=== PATIENT | female | born 1975 | race Hispanic/Latino ===

== ENCOUNTER 2018-03-12 20:57 | Emergency (ER) | payer OTHER ==
[2018-03-12 21:29] LABS: APPEARANCE,URINE CLEAR (CLEAR); BILIRUBIN,URINE NEGATIVE (NEGATIVE); COLOR,URINE YELLOW (YELLOW); GLUCOSE, URINE (UA) NEGATIVE (NEGATIVE); KETONES,URINE 5 mg/dL (NEGATIVE); LEUKOCYTE ESTERASE ,URINE TRACE (NEGATIVE); NITRATE,URINE POSITIVE (NEGATIVE); OCCULT BLOOD,URINE NEGATIVE (NEGATIVE); PROTEIN,URINE TRACE (NEGATIVE)
[2018-03-12 21:39] LABS: BACTERIA,URINE Few /HPF (None Seen); RBC,URINE 0-1 /HPF (0-1)
[2018-03-12 21:40] LABS: SQUAMOUS EPITHELIAL CELL,UR Few /HPF (0-2)
[2018-03-12] MEDS ORDERED: IPRATROPIUM/ALBUTEROL SULFATE 3 ML SOLUTION IH ONE (22:07)
[2018-03-12 22:11] LABS: BASOPHILS % (AUTO) 0.5 % (0.0-5.0); EOSINOPHILS % (AUTO) 3.5 % (0.0-8.0); HEMATOCRIT 44.6 % (36-48); LYMPHOCYTES % (AUTO) 17.5 % (21.0-51.0); MEAN CORPUSCULAR HEMOGLOBIN 31.4 pg (27.0-33.0); MEAN CORPUSCULAR HGB CONC 34.6 g/dL (32.0-36.0); MEAN CORPUSCULAR VOLUME 90.8 fL (79-99); MONOCYTES % (AUTO) 10.1 % (3.0-13.0); NEUTROPHILS % (AUTO) 68.4 % (40.0-77.0); PLATELET COUNT (AUTO) 251 K/uL (130-400); RED BLOOD CELL COUNT(AUTO) 4.91 MIL/uL (4.00-5.50); RED CELL DISTRIBUTION WIDTH 13.3 % (11.0-15.5); WHITE BLOOD COUNT (AUTO) 8.7 K/uL (4.8-10.8)
[2018-03-12 22:24] LABS: INR 0.92 (0.85-1.15); PARTIAL THROMBOPLASTIN TIME 26.8 SEC (26.3-35.5); PROTHROMBIN TIME 9.7 SEC (9.6-11.6)
[2018-03-12 22:28] LABS: CARBON DIOXIDE 28 mmol/L (21-32); CHLORIDE 106 mmol/L (101-111); CREATININE 0.8 mg/dL (0.5-1.5); GLOMERULAR FILTR. RATE CALC 83 mL/min (>60); GLUCOSE,RANDOM 112 mg/dL (70-105); POTASSIUM 3.7 mmol/L (3.5-5.1); SODIUM SERUM 142 mmol/L (136-145); UREA NITROGEN, BLOOD 12 mg/dL (7-18)
[2018-03-12 22:44] LABS: ALANINE AMINOTRANSFERASE 33 U/L (12-78); ALBUMIN 3.5 g/dL (3.5-5.0); ASPARTATE AMINOTRANSFERASE 18 U/L (10-37); BILIRUBIN,TOTAL 0.4 mg/dL (0.2-1.0); CREATINE KINASE MB < 0.5 ng/mL (0.5-3.6); CREATINE KINASE, TOTAL 40 U/L (21-232); MYOGLOBIN 18 ng/mL (10-92); TOTAL PROTEIN, SERUM 7.5 g/dL (6.0-8.3); TROPONIN I < 0.04 ng/mL (0.00-0.06)
[2018-03-12] MEDS ORDERED: CEFTRIAXONE SODIUM 1 GM ONE (23:01)
[2018-03-13] MEDS ORDERED: BENZONATATE 100 MG CAPSULE PO ONE (00:05)
[2018-03-13] MEDS ORDERED: DEXAMETHASONE SOD PHOSPHATE 10MG/ML 1ML VIAL ONE (00:05)
== END 2018-03-13 00:37 | disposition home or self-care (01) ==
LOC: EDH 20:57
DX: J20.9 Acute bronchitis, unspecified (principal); N39.0 Urinary tract infection, site not specified; M79.1 Myalgia; Z88.0 Allergy status to penicillin; Z90.710 Acquired absence of both cervix and uterus; Z98.890 Other specified postprocedural states
CPT/HCPCS: 36415 ×2; 71045; 80053; 81001; 82550; 82553; 83605 ×2; 83874; 84484; 85025; 85378; 85610; 85730; 87040 ×2; 87088; 87186; 93005; 94640; 96374; 96375; 99285; J0696; J1100

== ENCOUNTER 2018-08-31 21:06 | Emergency (ER) | payer OTHER ==
[2018-08-31] MEDS ORDERED: FUROSEMIDE 10 MG/ML 4ML VIAL ONE (21:14)
[2018-08-31 22:15] LABS: BASOPHILS % (AUTO) 0.3 % (0.0-5.0); EOSINOPHILS % (AUTO) 2.7 % (0.0-8.0); HEMATOCRIT 45.4 % (36-48); LYMPHOCYTES % (AUTO) 23.8 % (21.0-51.0); MEAN CORPUSCULAR HEMOGLOBIN 30.5 pg (27.0-33.0); MEAN CORPUSCULAR HGB CONC 33.5 g/dL (32.0-36.0); MEAN CORPUSCULAR VOLUME 91.1 fL (79-99); MONOCYTES % (AUTO) 7.8 % (3.0-13.0); NEUTROPHILS % (AUTO) 65.4 % (40.0-77.0); NUCLEATED RED BLOOD CELLS 0.1 % (0.0-0.19); PLATELET COUNT (AUTO) 246 K/uL (130-400); RED BLOOD CELL COUNT(AUTO) 4.98 MIL/uL (4.00-5.50); RED CELL DISTRIBUTION WIDTH 13.3 % (11.0-15.5); WHITE BLOOD COUNT (AUTO) 10.8 K/uL (4.8-10.8)
[2018-08-31 22:17] LABS: APPEARANCE,URINE Cloudy (CLEAR); BILIRUBIN,URINE Negative (NEGATIVE); COLOR,URINE Dark Yellow (YELLOW); CREATININE 0.8 mg/dL (0.5-1.5); GLUCOSE, URINE (UA) Negative (NEGATIVE); INR 0.95 (0.85-1.15); KETONES,URINE Trace mg/dL (NEGATIVE); LEUKOCYTE ESTERASE ,URINE Trace (NEGATIVE); NITRATE,URINE Negative (NEGATIVE); OCCULT BLOOD,URINE Negative (NEGATIVE); PARTIAL THROMBOPLASTIN TIME 29.5 SEC (26.3-35.5); POTASSIUM 4.1 mmol/L (3.5-5.1); PROTEIN,URINE Trace (NEGATIVE)
[2018-08-31] MEDS ORDERED: ASPIRIN 325 MG TABLET ONE (22:28)
[2018-08-31 22:44] LABS: BACTERIA,URINE Few /HPF (None Seen); MUCUS,URINE Moderate LPF (None Seen); RBC,URINE 0-1 /HPF (0-1); SQUAMOUS EPITHELIAL CELL,UR Moderate /HPF (0-2)
[2018-08-31 22:46] LABS: ALBUMIN 3.5 g/dL (3.5-5.0); BILIRUBIN,TOTAL 0.5 mg/dL (0.2-1.0); TOTAL PROTEIN, SERUM 7.5 g/dL (6.0-8.3)
[2018-09-01] MEDS ORDERED: ACETAMINOPHEN-CODEINE 300/30MG TAB ONE (01:07)
== END 2018-09-01 01:30 | disposition home or self-care (01) ==
LOC: EDH 21:06
DX: R07.89 Other chest pain (principal); R00.2 Palpitations; R51 Headache; Z88.0 Allergy status to penicillin; Z79.899 Other long term (current) drug therapy
CPT/HCPCS: 36415; 71045; 80053; 81001; 82550; 83874; 84439; 84443; 84484; 85025; 85610; 85730; 93005; 94761; J1940

== ENCOUNTER 2019-04-22 12:17 | Emergency (ER) | payer OTHER ==
[2019-04-22 13:12] LABS: BASOPHILS % (AUTO) 0.5 % (0.0-5.0); EOSINOPHILS % (AUTO) 2.1 % (0.0-8.0); HEMATOCRIT 44.5 % (36-48); LYMPHOCYTES % (AUTO) 24.2 % (21.0-51.0); MEAN CORPUSCULAR HEMOGLOBIN 30.6 pg (27.0-33.0); MEAN CORPUSCULAR HGB CONC 33.8 g/dL (32.0-36.0); MEAN CORPUSCULAR VOLUME 90.5 fL (79-99); MONOCYTES % (AUTO) 7.7 % (3.0-13.0); NEUTROPHILS % (AUTO) 65.5 % (40.0-77.0); NUCLEATED RED BLOOD CELLS 0.1 % (0.0-0.19); PLATELET COUNT (AUTO) 262 K/uL (130-400); RED BLOOD CELL COUNT(AUTO) 4.91 MIL/uL (4.00-5.50); RED CELL DISTRIBUTION WIDTH 12.9 % (11.0-15.5); WHITE BLOOD COUNT (AUTO) 9.5 K/uL (4.8-10.8)
[2019-04-22 13:29] LABS: CREATININE 0.7 mg/dL (0.5-1.5); POTASSIUM 3.6 mmol/L (3.5-5.1)
[2019-04-22 13:52] LABS: APPEARANCE,URINE CLEAR (CLEAR); BILIRUBIN,URINE NEGATIVE (NEGATIVE); COLOR,URINE YELLOW (YELLOW); GLUCOSE, URINE (UA) NEGATIVE (NEGATIVE); KETONES,URINE NEGATIVE (NEGATIVE); LEUKOCYTE ESTERASE ,URINE NEGATIVE (NEGATIVE); NITRATE,URINE NEGATIVE (NEGATIVE); OCCULT BLOOD,URINE NEGATIVE (NEGATIVE); PROTEIN,URINE TRACE mg/dL (NEGATIVE)
[2019-04-22 13:52] LABS: ALBUMIN 4.1 g/dL (3.5-5.0); BILIRUBIN,TOTAL 0.5 mg/dL (0.2-1.0); MAGNESIUM 1.8 mg/dL (1.80-2.40); TOTAL PROTEIN, SERUM 7.5 g/dL (6.0-8.3)
[2019-04-22 14:01] LABS: BACTERIA,URINE None Seen /HPF (None Seen); MUCUS,URINE Many LPF (None Seen); RBC,URINE None Seen /HPF (0-1); SQUAMOUS EPITHELIAL CELL,UR Rare /HPF (0-2); WBC,URINE 0-1 /HPF (0-1)
[2019-04-22] MEDS ORDERED: SODIUM CHLORIDE 0.9% 1000ML 1,000 ML IV ONE (14:09)
== END 2019-04-22 16:16 | disposition home or self-care (01) ==
LOC: EDH 12:17
DX: M62.82 Rhabdomyolysis (principal); Z90.710 Acquired absence of both cervix and uterus; Z88.0 Allergy status to penicillin
CPT/HCPCS: 36415; 80053; 81001; 82550; 83735; 83874; 85025; 93971; 96360; 96361; 99285; J7030

== ENCOUNTER 2019-12-19 10:14 | Emergency (ER) | payer OTHER ==
[2019-12-19 10:56] LABS: BASOPHILS % (AUTO) 0.3 % (0.0-5.0); EOSINOPHILS % (AUTO) 2.3 % (0.0-8.0); LYMPHOCYTES % (AUTO) 24.2 % (21.0-51.0); MEAN CORPUSCULAR HGB CONC 32.9 g/dL (32.0-36.0); MEAN CORPUSCULAR VOLUME 94.3 fL (79-99); MONOCYTES % (AUTO) 7.1 % (3.0-13.0); NEUTROPHILS % (AUTO) 65.8 % (40.0-77.0); PLATELET COUNT (AUTO) 270 K/uL (130-400); RED BLOOD CELL COUNT(AUTO) 4.77 MIL/uL (4.00-5.50); RED CELL DISTRIBUTION WIDTH 12.7 % (11.0-15.5); WHITE BLOOD COUNT (AUTO) 8.6 K/uL (4.8-10.8)
[2019-12-19 11:06] LABS: CREATININE 0.9 mg/dL (0.5-1.5); POTASSIUM 4.8 mmol/L (3.5-5.1)
[2019-12-19 11:08] LABS: INR 0.91 (0.85-1.15); PROTHROMBIN TIME 9.9 SEC (9.6-11.6)
[2019-12-19 11:14] LABS: ALBUMIN 3.5 g/dL (3.5-5.0); BILIRUBIN,TOTAL 0.4 mg/dL (0.2-1.0); TOTAL PROTEIN, SERUM 7.6 g/dL (6.0-8.3)
[2019-12-19 14:29] LABS: APPEARANCE,URINE Clear (CLEAR); BILIRUBIN,URINE Negative (NEGATIVE); COLOR,URINE Yellow (YELLOW); GLUCOSE, URINE (UA) Negative (NEGATIVE); KETONES,URINE Negative (NEGATIVE); LEUKOCYTE ESTERASE ,URINE Negative (NEGATIVE); NITRATE,URINE Negative (NEGATIVE); OCCULT BLOOD,URINE Negative (NEGATIVE); PROTEIN,URINE Negative (NEGATIVE)
== END 2019-12-19 15:18 | disposition home or self-care (01) ==
LOC: EDH 10:14
DX: R07.89 Other chest pain (principal); R60.9 Edema, unspecified; Z88.0 Allergy status to penicillin; Z90.710 Acquired absence of both cervix and uterus; Z87.891 Personal history of nicotine dependence
CPT/HCPCS: 36415; 71045; 80053; 81003; 82550; 83880; 84484; 85025; 85378; 85610; 85730; 93005

== ENCOUNTER 2020-03-29 21:33 | Emergency (ER) | payer OTHER ==
[2020-03-29 23:41] LABS: BASOPHILS % (AUTO) 0.2 % (0.0-5.0); EOSINOPHILS % (AUTO) 1.9 % (0.0-8.0); HEMATOCRIT 49.2 % (36-48); LYMPHOCYTES % (AUTO) 22.7 % (21.0-51.0); MEAN CORPUSCULAR HEMOGLOBIN 31.4 pg (27.0-33.0); MEAN CORPUSCULAR HGB CONC 33.7 g/dL (32.0-36.0); MONOCYTES % (AUTO) 13.8 % (3.0-13.0); NEUTROPHILS % (AUTO) 61.2 % (40.0-77.0); PLATELET COUNT (AUTO) 158 K/uL (130-400); RED BLOOD CELL COUNT(AUTO) 5.29 MIL/uL (4.00-5.50); RED CELL DISTRIBUTION WIDTH 13.3 % (11.0-15.5); WHITE BLOOD COUNT (AUTO) 5.9 K/uL (4.8-10.8)
[2020-03-29 23:48] LABS: CREATININE 0.9 mg/dL (0.5-1.5); POTASSIUM 3.7 mmol/L (3.5-5.1)
[2020-03-29 23:53] LABS: ALBUMIN 3.8 g/dL (3.5-5.0); BILIRUBIN,TOTAL 0.5 mg/dL (0.2-1.0); TOTAL PROTEIN, SERUM 8.4 g/dL (6.0-8.3)
[2020-03-30 00:02] LABS: INR 0.96 (0.85-1.15); PARTIAL THROMBOPLASTIN TIME 32.6 SEC (26.3-35.5); PROTHROMBIN TIME 10.4 SEC (9.6-11.6)
[2020-03-30 00:07] LABS: B-TYPE NATRIURETIC PEPTIDE < 5 pg/mL (0-100)
== END 2020-03-30 02:58 | disposition home or self-care (01) ==
LOC: EDH 21:33
DX: U07.1 COVID-19 (principal); J06.9 Acute upper respiratory infection, unspecified; Z88.0 Allergy status to penicillin; Z90.410 Acquired total absence of pancreas
CPT/HCPCS: 36415; 71045; 80053; 82550; 83880; 84484; 85025; 85610; 85730; 87040; 87077; 87186; 87486; 87581; 87633; 87635; 87798; 93005

== ENCOUNTER 2020-04-02 20:24 | Inpatient (IN) | payer OTHER ==
[~2020-04-02] VITALS: Ht 157.5 cm; Wt 103.6 kg
[2020-04-02] MEDS ORDERED: SODIUM CHLORIDE 0.9% 1000ML 1,000 ML IV ONE (22:07)
[2020-04-02] MEDS ORDERED: MORPHINE SULFATE 4 MG/1ML SYG ONE (22:09)
[2020-04-02] MEDS ORDERED: AZITHROMYCIN 500MG+NS 250ML 250 ML IV ONE (22:09)
[2020-04-02] MEDS ORDERED: METHYLPREDNISOLONE SOD SUCC 40MG/ML 1ML ONE (22:09)
[2020-04-02] MEDS ORDERED: ONDANSETRON HCL 4 MG/2 ML VIAL ONE (22:09)
[2020-04-02] MEDS ORDERED: ACETAMINOPHEN EXTRA STRENGTH 500 MG TABLET ONE (22:22)
[2020-04-02] MEDS ORDERED: IOHEXOL 350 MG/ML 100ML INFUS..BTL IV ONE (23:37)
[2020-04-03] MEDS ORDERED: SODIUM CHLORIDE 0.9% 1000ML 1,000 ML IV SCH (00:40)
[2020-04-03] MEDS ORDERED: LACTULOSE 20 GM/30 ML UDCUP PO PRN (00:45)
[2020-04-03] MEDS ORDERED: ACETAMINOPHEN 325 MG TAB PO PRN ×2 (00:45)
[2020-04-03] MEDS ORDERED: ONDANSETRON HCL 4 MG/2 ML VIAL IV PRN (00:45)
[2020-04-03] MEDS ORDERED: ALBUTEROL INHALER 90MCG/INH IH ONE (01:19)
[2020-04-03] MEDS: ALBUTEROL INHALER 90MCG/INH IH SCH (06:00)
[2020-04-03] MEDS ORDERED: METHYLPREDNISOLONE SOD SUCC 40MG/ML 1ML IVP SCH ×2 (06:00→21:00)
[2020-04-03] MEDS ORDERED: ENOXAPARIN SODIUM 40 MG/0.4 ML SYRINGE SQ ONE (08:49)
[2020-04-03] MEDS ORDERED: FAMOTIDINE/PF 20 MG/2 ML VIAL IV ONE ×2 (08:50→21:51)
[2020-04-03] MEDS ORDERED: ENOXAPARIN SODIUM 40 MG/0.4 ML SYRINGE SQ SCH (09:00)
[2020-04-03] MEDS ORDERED: ACETAMINOPHEN 325 MG TAB ONE (12:30)
[2020-04-03] MEDS ORDERED: DOXYCYCLINE HYCLATE 100 MG TABLET PO ONE (14:10)
[2020-04-03] MEDS ORDERED: METHYLPREDNISOLONE SOD SUCC 40MG/ML 1ML ONE ×2 (14:10→21:50)
[2020-04-03] MEDS ORDERED: CEFTRIAXONE SODIUM 1 GM ONE (14:11)
[2020-04-03] MEDS ORDERED: SODIUM CHLORIDE 0.9% 100 ML IV ONE (14:11)
--- NOTE | 2020-04-03 16:06 | NUR ---
SW unable to meet with pt who is in ER covid 19 unit. Sw tried to reach daughter Rhonda Tuttle, but # is same as one for pt, and no one answered. CM to follow and complete IA when able
--- NOTE | 2020-04-03 16:14 | NUR ---
DCP: HOME Sw recd call from pt who states she lives alone, daughter Rhonda Tuttle [phone] is ER contact and away at college. Prior to admission, pt works drives, is independent of all ADLS, no DME or HH services. Pt has no PCP and uses [facility] for rx medications. Plan is home at ok Addendum: 04/03/20 at 1616 by IRENA LOZA Amended: Links added.
[2020-04-03] MEDS ORDERED: SODIUM CHLORIDE 0.9% 1000ML 1,000 ML IV ONE (17:19)
[2020-04-03] MEDS ORDERED: CEFTRIAXONE SODIUM 1 GM IVP SCH (20:00)
[2020-04-03] MEDS ORDERED: MORPHINE SULFATE 2 MG/ML 1ML SYG ONE (21:34)
[2020-04-03] MEDS ORDERED: ONDANSETRON HCL 4 MG/2 ML VIAL ONE (21:34)
[2020-04-03] MEDS ORDERED: ENOXAPARIN SODIUM 60 MG/0.6 ML SQ ONE (21:50)
[2020-04-04] MEDS ORDERED: CEFTRIAXONE SODIUM 1 GM ONE (01:21)
[2020-04-04] MEDS ORDERED: DOXYCYCLINE HYCLATE 100 MG TABLET PO ONE ×2 (01:21→19:40)
[2020-04-04] MEDS ORDERED: SODIUM CHLORIDE 0.9% 1000ML 1,000 ML IV ONE (05:08)
[2020-04-04] MEDS ORDERED: METHYLPREDNISOLONE SOD SUCC 40MG/ML 1ML ONE (05:47)
[2020-04-04] MEDS ORDERED: ACETAMINOPHEN 325 MG TAB ONE (23:37)
[2020-04-04] MEDS ORDERED: MORPHINE SULFATE 2 MG/ML 1ML SYG ONE (23:37)
[2020-04-04] MEDS ORDERED: ONDANSETRON HCL 4 MG/2 ML VIAL ONE (23:37)
[2020-04-05] MEDS ORDERED: DOXYCYCLINE HYCLATE 100 MG TABLET PO ONE ×2 (01:24→14:45)
[2020-04-05] MEDS ORDERED: CEFTRIAXONE SODIUM 1 GM ONE ×2 (01:24→14:50)
[2020-04-05] MEDS: LACTOBACILLUS RHAMNOSUS GG 1 EACH CAP.SPRINK PO SCH (06:30)
[2020-04-05] MEDS: ZINC SULFATE 220 CAPSULE PO SCH (09:00)
[2020-04-05] MEDS: ASCORBIC ACID 500 MG TAB PO SCH (09:00)
[2020-04-05] MEDS ORDERED: ACETAMINOPHEN 325 MG TAB ONE ×3 (09:03→20:34)
[2020-04-05] MEDS ORDERED: ENOXAPARIN SODIUM 60 MG/0.6 ML SQ ONE ×2 (11:27→20:33)
[2020-04-05] MEDS ORDERED: SODIUM CHLORIDE 0.9% 100 ML IV ONE (14:50)
[2020-04-05] MEDS ORDERED: METHYLPREDNISOLONE SOD SUCC 125MG/2ML VIAL ONE (18:46)
[2020-04-05] MEDS ORDERED: FAMOTIDINE/PF 20 MG/2 ML VIAL IV ONE (20:34)
[2020-04-05] MEDS: FAMOTIDINE 20MG TAB 20 MG TAB PO SCH (21:00)
[2020-04-05] MEDS: ENOXAPARIN SODIUM 60 MG/0.6 ML SQ SCH (21:00)
[2020-04-06] MEDS ORDERED: METHYLPREDNISOLONE SOD SUCC 40MG/ML 1ML ONE (01:47)
[2020-04-06] MEDS ORDERED: CEFTRIAXONE SODIUM 1 GM ONE (01:47)
[2020-04-06] MEDS ORDERED: DOXYCYCLINE HYCLATE 100 MG TABLET PO ONE (01:47)
[2020-04-06] MEDS: ALBUTEROL INHALER 90MCG/INH IH SCH ×2 (02:00→06:08)
[2020-04-06] MEDS: DOXYCYCLINE 100MG+NS 250ML 250 ML IV SCH ×3 (02:00→23:20)
[2020-04-06] MEDS: METHYLPREDNISOLONE SOD SUCC 125MG/2ML VIAL IVP SCH ×4 (02:15→23:25)
--- NOTE | 2020-04-06 03:35 | NUR ---
Admitted to floor via wheelchair from ER. AOX3. Alert and responsive. On continuous O2 at 3LPM via NC with O2Sat at 93%. SOB during exertion / activity noted. Positioned in bed with HOBE for easy breathing. VS checked and recorded. Assessment done. ( See CPOE flow chart for full assessment). Attached to TELE at bedside with SR of 70's. Plan of care continued as ordered. Monitored and observed for any unusual changes in condition. Needs attended and cared for. No apparent distress / discomfort noted at this time. Report given by LULI Reyes.
[2020-04-06 03:47] VITALS: BP 127/76; PULSE 73; RESP 22; TEMP 98.5
[2020-04-06] MEDS: LACTOBACILLUS RHAMNOSUS GG 1 EACH CAP.SPRINK PO SCH (06:30)
[2020-04-06 08:06] VITALS: BP 136/77; PULSE 67; RESP 18; TEMP 98.6
[2020-04-06] MEDS ORDERED: REMDESIVIR (INVESTIGATIONAL) 100 MG in SODIUM CHLORIDE 0.9% 250 ML IV SCH (08:30)
[2020-04-06] MEDS: FAMOTIDINE 20MG TAB 20 MG TAB PO SCH ×2 (10:40→23:20)
[2020-04-06] MEDS: ZINC SULFATE 220 CAPSULE PO SCH (10:40)
[2020-04-06] MEDS: ASCORBIC ACID 500 MG TAB PO SCH (10:40)
[2020-04-06] MEDS: ENOXAPARIN SODIUM 60 MG/0.6 ML SQ SCH ×2 (10:41→23:22)
[2020-04-06 12:37] VITALS: BP 127/74; PULSE 73; RESP 20; TEMP 98.2
[2020-04-06 15:44] VITALS: BP 138/90; PULSE 82; RESP 18; TEMP 98.7
[2020-04-06] MEDS: CEFTRIAXONE SODIUM 1 GM IVP SCH ×2 (16:53→23:18)
[2020-04-06 20:08] VITALS: BP 121/68; PULSE 73; RESP 18; TEMP 98.5
[2020-04-06 23:56] VITALS: BP 138/74; PULSE 68; RESP 18; TEMP 98.8
[2020-04-07] VITALS (7 sets, daily range): BP systolic 113–159; BP diastolic 53–95; PULSE 63–114; RESP 18–19; TEMP 97.2–98.4
[2020-04-07] MEDS: MORPHINE SULFATE 2 MG/ML 1ML SYG IV PRN ×2 (00:04→22:35)
[2020-04-07] MEDS: FAMOTIDINE 20MG TAB 20 MG TAB PO SCH (09:00)
[2020-04-07] MEDS: ZINC SULFATE 220 CAPSULE PO SCH (09:23)
[2020-04-07] MEDS: ASCORBIC ACID 500 MG TAB PO SCH (09:23)
[2020-04-07] MEDS: LACTOBACILLUS RHAMNOSUS GG 1 EACH CAP.SPRINK PO SCH (09:23)
[2020-04-07] MEDS: ENOXAPARIN SODIUM 60 MG/0.6 ML SQ SCH ×2 (09:24→21:08)
[2020-04-07] MEDS: METHYLPREDNISOLONE SOD SUCC 125MG/2ML VIAL IVP SCH ×2 (09:24→18:16)
[2020-04-07] MEDS: DOXYCYCLINE 100MG+NS 250ML 250 ML IV SCH ×2 (09:24→21:07)
[2020-04-07] MEDS: CEFTRIAXONE SODIUM 1 GM IVP SCH (13:42)
[2020-04-07] MEDS ORDERED: POTASSIUM CHLORIDE 20 MEQ ERTAB PO SCH (20:30)
[2020-04-07] MEDS: PANTOPRAZOLE SODIUM 40 MG TABLET.DR PO SCH (21:07)
[2020-04-08] MEDS: CEFTRIAXONE SODIUM 1 GM IVP SCH ×2 (02:47→13:16)
[2020-04-08] MEDS: METHYLPREDNISOLONE SOD SUCC 125MG/2ML VIAL IVP SCH ×2 (02:47→09:18)
[2020-04-08 04:31] VITALS: BP 131/75; PULSE 54; RESP 18; TEMP 97.3
[2020-04-08 07:00] VITALS: BP 131/78; PULSE 52; RESP 20; TEMP 97.2
[2020-04-08] MEDS: ASCORBIC ACID 500 MG TAB PO SCH (09:17)
[2020-04-08] MEDS: ENOXAPARIN SODIUM 60 MG/0.6 ML SQ SCH (09:17)
[2020-04-08] MEDS: ZINC SULFATE 220 CAPSULE PO SCH (09:18)
[2020-04-08] MEDS: DOXYCYCLINE 100MG+NS 250ML 250 ML IV SCH ×2 (09:18→20:50)
[2020-04-08] MEDS: PANTOPRAZOLE SODIUM 40 MG TABLET.DR PO SCH (09:18)
[2020-04-08] MEDS: LACTOBACILLUS RHAMNOSUS GG 1 EACH CAP.SPRINK PO SCH (09:18)
[2020-04-08] MEDS: METHYLPREDNISOLONE SOD SUCC 40MG/ML 1ML IVP SCH ×2 (09:45→17:24)
[2020-04-08 11:00] VITALS: BP 166/84; PULSE 65; RESP 20; TEMP 97.4
[2020-04-08 16:00] VITALS: BP 132/76; PULSE 57; RESP 20; TEMP 97.8
[2020-04-08] MEDS: METOPROLOL TARTRATE 25 MG TAB PO SCH ×2 (17:24→20:50)
[2020-04-08 19:29] VITALS: BP 110/58; PULSE 60; RESP 20; TEMP 97.2
[2020-04-08] MEDS: ALBUTEROL INHALER 90MCG/INH IH SCH (20:51)
--- NOTE | 2020-04-08 21:24 | NUR ---
IV Pt c/i her iv hurts,iv site with no redness,no swelling.Inserted a new iv to left hand x 2 attempts.Pt anxious,crying.
[2020-04-08] MEDS: MORPHINE SULFATE 2 MG/ML 1ML SYG IV PRN (21:57)
--- NOTE | 2020-04-08 21:57 | NUR ---
MORPHINE Pt medicated with Morphine as per request.
[2020-04-08 23:49] VITALS: BP 115/53; PULSE 55; RESP 18; TEMP 98.4
[2020-04-09] VITALS (7 sets, daily range): BP systolic 121–138; BP diastolic 57–80; PULSE 48–60; RESP 18–24; TEMP 96.4–97.9
--- NOTE | 2020-04-09 01:16 | NUR ---
STATUS Pt resting quietly in bed,eyes closed.Respirations even and unlabored.
[2020-04-09] MEDS: CEFTRIAXONE SODIUM 1 GM IVP SCH ×2 (02:09→13:33)
[2020-04-09] MEDS: METHYLPREDNISOLONE SOD SUCC 40MG/ML 1ML IVP SCH ×3 (02:09→22:29)
[2020-04-09] MEDS: ALBUTEROL INHALER 90MCG/INH IH SCH ×2 (02:09→05:12)
[2020-04-09] MEDS: LACTOBACILLUS RHAMNOSUS GG 1 EACH CAP.SPRINK PO SCH (05:13)
[2020-04-09] MEDS: ASCORBIC ACID 500 MG TAB PO SCH (09:00)
[2020-04-09] MEDS: METOPROLOL TARTRATE 25 MG TAB PO SCH ×2 (09:00→21:00)
[2020-04-09] MEDS: DOXYCYCLINE 100MG+NS 250ML 250 ML IV SCH (09:52)
[2020-04-09] MEDS: PANTOPRAZOLE SODIUM 40 MG TABLET.DR PO SCH (09:52)
[2020-04-09] MEDS: ZINC SULFATE 220 CAPSULE PO SCH (09:52)
[2020-04-09] MEDS: ENOXAPARIN SODIUM 40 MG/0.4 ML SYRINGE SQ SCH (11:11)
[2020-04-09] MEDS: DOXYCYCLINE HYCLATE 100 MG TABLET PO SCH (22:28)
[2020-04-10] VITALS (8 sets, daily range): BP systolic 109–153; BP diastolic 52–81; PULSE 47–90; RESP 18–20; TEMP 97.6–98.5
[2020-04-10] MEDS: MORPHINE SULFATE 2 MG/ML 1ML SYG IV PRN (00:19)
[2020-04-10] MEDS: CEFTRIAXONE SODIUM 1 GM IVP SCH ×2 (02:45→14:11)
--- NOTE | 2020-04-10 03:44 | NUR ---
LAB CLARIFICATION DAVONTE CALLED FROM LAB REQUESTING A CLARIFICATION FOR THE [facility] COLLECTION. WILL CLARIFY ORDER.
--- NOTE | 2020-04-10 04:39 | NUR ---
EDMUND CRAIN SPOKE WITH NABOR GRANDE ABOUT [facility] FLUID LAB ORDER. SHE SAID SHE WOULD REVIEW THE CHART AND MAKE ANY CHANGES IF NEEDED.
[2020-04-10] MEDS: LACTOBACILLUS RHAMNOSUS GG 1 EACH CAP.SPRINK PO SCH (06:07)
[2020-04-10] MEDS: ZINC SULFATE 220 CAPSULE PO SCH (08:19)
[2020-04-10] MEDS: ASCORBIC ACID 500 MG TAB PO SCH (08:19)
[2020-04-10] MEDS: DOXYCYCLINE HYCLATE 100 MG TABLET PO SCH ×2 (08:19→20:25)
[2020-04-10] MEDS: PANTOPRAZOLE SODIUM 40 MG TABLET.DR PO SCH (08:19)
[2020-04-10] MEDS: METOPROLOL TARTRATE 25 MG TAB PO SCH (08:20)
[2020-04-10] MEDS: ENOXAPARIN SODIUM 40 MG/0.4 ML SYRINGE SQ SCH (08:20)
[2020-04-10] MEDS: METHYLPREDNISOLONE SOD SUCC 40MG/ML 1ML IVP SCH (08:20)
[2020-04-10] MEDS ORDERED: DEXAMETHASONE 4 MG TAB PO SCH (14:30)
[2020-04-11] VITALS (7 sets, daily range): BP systolic 108–127; BP diastolic 60–78; PULSE 48–75; RESP 18–25; TEMP 97.7–98.4
[2020-04-11] MEDS ORDERED: MORPHINE SULFATE 2 MG/ML 1ML SYG ONE (00:45)
[2020-04-11] MEDS ORDERED: MORPHINE SULFATE 2 MG/ML 1ML SYG IVP ONE (01:00)
[2020-04-11] MEDS: CEFTRIAXONE SODIUM 1 GM IVP SCH ×2 (01:01→12:35)
[2020-04-11] MEDS: ALBUTEROL INHALER 90MCG/INH IH SCH (06:00)
[2020-04-11] MEDS: LACTOBACILLUS RHAMNOSUS GG 1 EACH CAP.SPRINK PO SCH (06:16)
[2020-04-11] MEDS: ASCORBIC ACID 500 MG TAB PO SCH (08:23)
[2020-04-11] MEDS: PANTOPRAZOLE SODIUM 40 MG TABLET.DR PO SCH (08:23)
[2020-04-11] MEDS: DOXYCYCLINE HYCLATE 100 MG TABLET PO SCH ×2 (08:23→20:11)
[2020-04-11] MEDS: ENOXAPARIN SODIUM 40 MG/0.4 ML SYRINGE SQ SCH (08:23)
[2020-04-11] MEDS: ZINC SULFATE 220 CAPSULE PO SCH (08:23)
[2020-04-11] MEDS ORDERED: DEXAMETHASONE 4 MG TAB PO SCH (11:00)
--- NOTE | 2020-04-11 18:22 | NUR ---
DISCHARGE DISCHARGE PAPERWORK WAS EXPLAINED TO THE PATIENT AT THIS TIME. PATIENT VERBALIZED UNDERSTANDING OF INSTRUCTIONS. PATIENT STATES HER DAUGHTER WILL BE HERE AROUND 8:30PM. IV REMAINED IN PLACE IN CASE OF ANY EMERGENCY, POCKETBOOK MAKER NURSE TO DISCONTINUE AT TIME OF DEPARTURE. ALL PAPERWORK SIGNED. NO NEW MEDICATIONS TO BE SENT HOME WITH. CHARGE NURSE AWARE THAT PATIENT WILL NOT HAVE AN AVAILABLE RIDE UNTIL 8:30 PM.
--- NOTE | 2020-04-11 20:40 | NUR ---
patient leaving via wheelchair transported to [facility]. removed IV and telepak. patient stable, AOX3, no distress noted.
== END 2020-04-11 20:38 | disposition home or self-care (01) | DRG 177 ==
LOC: EDH 20:24 → EDHIP 04-03 00:40 → 2DH 04-06 03:35
PROVIDERS: ADMIT Hospitalist; ATTEND Hospitalist
PROC: 30233K1 Transfusion of Nonautologous Frozen Plasma into Peripheral Vein, Percutaneous Approach (ICD-10-PCS; principal; 2020-04-03)
DX: U07.1 COVID-19 (principal); J12.89 Other viral pneumonia; A41.9 Sepsis, unspecified organism; J96.01 Acute respiratory failure with hypoxia; Z68.41 Body mass index [BMI] 40.0-44.9, adult; B96.89 Other specified bacterial agents as the cause of diseases classified elsewhere; E66.01 Morbid (severe) obesity due to excess calories; I10 Essential (primary) hypertension; Z90.710 Acquired absence of both cervix and uterus; Z88.0 Allergy status to penicillin; Z91.041 Radiographic dye allergy status